=== PATIENT | male | born 1970 | race African-American/Black ===

== ENCOUNTER 2016-11-17 08:36 | Emergency (ER) | payer OTHER ==
[2016-11-17 08:48] VITALS: TEMP 97.6; BMI 35.9
[2016-11-17] MEDS ORDERED: IBUPROFEN 800 MG TAB PO ONE (08:55)
[2016-11-17] MEDS ORDERED: OXYMETAZOLINE 0.05% NASAL SPRAY NAS ONE (08:55)
[2016-11-17] MEDS ORDERED: ALBUTEROL 6.7 GM MDI INH ONE (08:55)
--- NOTE | 2016-11-17 09:01 | EDPRACDOC ---
- General Information Chief Complaint: Flu-Like Symptoms Stated Complaint: FLU LIKE SYMPTOMS Time Seen by Provider: 11/17/16 08:51 Information Source: Patient Mode Of Arrival: Car Home Medications: Home Medications Clindamycin [Cleocin] 150 mg PO Q6 #40 capsule 08/09/16 Tramadol HCl 50 mg PO Q6 PRN #12 tablet 08/09/16 Azithromycin [Zithromax] 250 mg PO DAILY #4 tab 11/17/16 Hydrocodone/Acetaminophen [Lortab 5-325 mg Tablet] 1 each PO Q4H PRN #15 tablet 11/17/16 Ibuprofen 800 mg PO Q8H PRN #20 tablet 11/17/16 Allergies/Adverse Reactions: Allergies Allergy/AdvReac Type Severity Reaction Status Date / Time No Known Allergies Allergy Verified 08/09/16 14:14 - History of Present Illness Onset: 4 days HPI: PT HAS BEEN SICK FOR 4 DAYS. HE SAID HE'S BEEN USING THERAFLU, BUT HE IS NOT IMPROVING. PT SAID THAT HE HAS HAD A H/A, SINUS CONGESTION, AND IS COUGHING UP YELLOW SPUTUM. Current Symptoms: Reports: Cough, Headache, Nasal Symptoms Shortness of Breath: Mild Cough: Reports: Yellow Rhinorrhea: Reports: Clear Ear Symptoms: Reports: None Fever Severity/Quality: Reports: subjective Oral Intake: Normal Urinary Output: Normal Relevant History of: None - Treatment Prior to ED Arrival Reported Medications/Treatment [employer] Medications [employer] (Medication/ Thera flu last night Dose/Time) ED Past Medical History - History Reviewed No Past Medical History: Yes Patient has no past medical history - Patient Medical History Psychological History: Denies: Depression Systemic History: Denies: Cancer Surgical History: Reports: No Significant History - Social Medical History Smoking Status: Heavy tobacco smoker (5 or more cigarettes/day or daily pipe/ cigar) ETOH: None Substance Abuse: None Lives In: Home EDM Review of Systems - Review of Systems ROS Negative Except as Marked: Yes All systems reviewed and were negative except as marked Constitutional: Chills, Fever Nose: Congestion Respiratory: Cough - Physical Exam Constitutional: Alert (Awake), No apparent distress Oriented to: Time, Person, Place Last recorded Vital Signs: Last Vital Signs Temp 97.6 F 11/17/16 08:44 Pulse 113 11/17/16 08:44 Resp 22 11/17/16 08:44 BP 154/89 11/17/16 08:44 Pulse Ox 98 11/17/16 08:44 Oxygen Pulse Oxygen Saturation 98 O2 Device Room Air Oxygen Flow Rate Fraction of Inspired Oxygen ( FIO2) - HEENT Head: Normal ( normocephalic) Eye Exam: Normal (PERRL, EOMI, Sclera white) Oropharynx: Normal (Pharynx:Moist without exudate,Gums-no swelling) ENT EAC: Normal TMJ: Normal Nose: Congestion Neck: Normal (FROM, trachea at midline) - Respiratory/Cardiovascular Respiratory: Wheezes Cardiovascular: Normal - GI Auscultation: Normal (NABS) Palpation: Normal (Soft,No rebound or guarding, non distended) Tenderness: Non tender Diaz's Sign: Negative - Musculoskeletal Back: Normal (Non-Tender) Extremities: Normal (Normal tone, Pulses 2+ No cyanosis or edema, FROM) - Integumentary Skin: Normal, Warm, Dry Lymphatics: Normal (no adenopathy) - Neurologic Memory Impaired: Normal Motor Function: Normal (Normal tone, Pulses 2+ No cyanosis or edema, FROM) Cranial Nerve: Normal (CN II-X11 intact sensation, strength 5/5) Cerebellar: Normal Mood Description: Normal Thought: Coherent Perception: Normal - Diagnostic Imaging Chest Image interpreted by: Radiologist Negative chest. Decision Time to Discharge: 09:56 - Departure Yes I personally saw and evaluated the patient. Disposition: Home Condition: Fair Final Diagnosis: Acute bronchitis, Acute sinusitis Instructions: Acute Bronchitis (ED) Education/Counseling Given To: Patient Education/Counseling Given Regarding: Diagnosis, Treatment, Follow Up Referrals: None,No Provider [Primary Care Provider] - One Week Mirna Valencia MD [Staff Physician] - One Week Prescriptions: Azithromycin [Zithromax] 250 mg PO DAILY #4 tab Hydrocodone/Acetaminophen [Lortab 5-325 mg Tablet] 1 each PO Q4H PRN #15 tablet PRN Reason: Pain Ibuprofen 800 mg PO Q8H PRN #20 tablet PRN Reason: Pain Forms: Excuse Note
--- NOTE | 2016-11-17 09:29 | DIRPT ---
CLINICAL DATA: Cough and cold symptoms for 2 days. Initial encounter. EXAM: CHEST 2 VIEW COMPARISON: None. FINDINGS: The lungs are clear. Heart size is normal. There is no pneumothorax or pleural effusion. No focal bony abnormality is identified. IMPRESSION: Negative chest. Electronically Signed By: Lg Reynolds M.D. On: 11/17/2016 09:27
[2016-11-17] MEDS ORDERED: AZITHROMYCIN 250 MG TAB PO ONE (09:57)
[2016-11-17 10:12] VITALS: BP 128/85; PULSE 75
== END 2016-11-17 10:09 | disposition home or self-care (01) ==
LOC: ED 08:36
DX: J20.9 Acute bronchitis, unspecified (principal); J01.90 Acute sinusitis, unspecified
CPT/HCPCS: 71020; 87804; 94640; 94664; 99282; J3490